=== PATIENT | male | born 2000 | race Two or more races ===

== ENCOUNTER 2023-06-03 23:19 | Emergency (ER) | payer OTHER ==
[2023-06-04] MEDS ORDERED: Amoxicillin 500 MG Cap PO ONE (02:23)
== END 2023-06-04 02:45 | disposition home or self-care (01) ==
LOC: JD.ED 23:19
DX: S01.511A Laceration without foreign body of lip, initial encounter (principal); S20.219A Contusion of unspecified front wall of thorax, initial encounter; R55 Syncope and collapse; V89.2XXA Person injured in unspecified motor-vehicle accident, traffic, initial encounter
CPT/HCPCS: 71101; 99284; A9270